=== PATIENT | female | born 1970 | race Caucasian/White ===

== ENCOUNTER 2017-11-06 12:33 | Emergency (ER) | payer OTHER ==
[2017-11-06 14:02] LABS: Basophils % (Auto) 0.3 % (0.0-1.8); Eosinophils # (Auto) 0.2 K/mm3 (0.0-0.4); Eosinophils % (Auto) 1.4 % (0.0-4.3); Hematocrit 41.5 % (30.3-42.9); Hemoglobin 14.1 gm/dl (10.1-14.3); Lymphocytes # (Auto) 3.2 K/mm3 (1.2-5.4); Lymphocytes % (Auto) 20.3 % (13.4-35.0); Mean Corpuscular HGB Conc 34 % (30-34); Mean Corpuscular Hemoglobin 32 pg (28-32); Mean Corpuscular Volume 93 fl (79-97); Monocytes # (Auto) 0.7 K/mm3 (0.0-0.8); Monocytes % (Auto) 4.5 % (0.0-7.3); Platelet Count 271 K/mm3 (140-440); Red Blood Count 4.47 M/mm3 (3.65-5.03); Red Cell Distribution Width 13.9 % (13.2-15.2)
[2017-11-06 14:19] LABS: BUN/Creatinine Ratio 16; Blood Urea Nitrogen 8 mg/dL (7-17); Calcium 8.6 mg/dL (8.4-10.2); Hemolysis Index 16
[2017-11-07] MEDS ORDERED: MOTRIN PO ONE (01:48)
[2017-11-07] MEDS ORDERED: CLEOCIN PO ONE (01:48)
[2017-11-07] MEDS ORDERED: TYLENOL PO ONE (01:48)
--- NOTE | 2017-11-07 01:49 | Emergency Department Report ---
ED General Adult HPI - General Chief complaint: Skin/Abscess/Foreign Body Stated complaint: ABSCESS Time Seen by Provider: 11/07/17 01:39 Source: patient Mode of arrival: Ambulatory Limitations: Language Barrier (this provider is conversational in montenegrin) - History of Present Illness Initial comments: This is a 47-year-old female who is not known to this provider previously. She reports that she is not . Patient presents to the ER with a complaint of left anterior mental pain, redness, swelling, tenderness. The pain does not radiate anywhere. It increases with palpation. It decreases with rest. Patient denies severe headache, neck pain, chest pain, abdominal pain, shortness of breath, fevers, chills, lethargy, stridor, inability to swallow. Patient is quite certain that she is not -: Gradual Location: face Radiation: non-radiation Severity scale (0 -10): 7 Quality: aching Consistency: intermittent Improves with: rest Worsens with: movement Associated Symptoms: rash. denies: confusion, chest pain, cough, diaphoresis, fever/chills, headaches, loss of appetite, malaise, nausea/vomiting, shortness of breath, syncope, weakness - Related Data Previous Rx's Medication Instructions Recorded Last Taken Type Albuterol Sulfate [Ventolin HFA] 2 puff IH Q4H PRN #1 hfa.aer.ad 06/30/15 Unknown Rx Amoxicillin [Trimox CAP] 500 mg PO Q8H #40 capsule 06/30/15 Unknown Rx Fluticasone [Flonase] 2 spray NS QDAY #1 bottle 06/30/15 Unknown Rx Loratadine [Claritin] 10 mg PO DAILY #30 tablet 06/30/15 Unknown Rx Promethazine /Codeine 5 ml PO Q6H PRN #150 ml 06/30/15 Unknown Rx [Phenergan/Codeine 6.25-10 mg/5 ml] predniSONE [Deltasone] 40 mg PO QDAY #10 tab 06/30/15 Unknown Rx Diazepam Tab [Valium] 2 mg PO Q8HR PRN #10 tablet 06/28/16 Unknown Rx Acetaminophen [Tylenol Arthritis] 650 mg PO Q6HR PRN #30 tablet.er 11/07/17 Unknown Rx Clindamycin HCl 300 mg PO Q6HR #20 capsule 12/28/17 Unknown Rx Ibuprofen [Motrin] 600 mg PO Q8H PRN #30 tablet 11/07/17 Unknown Rx Allergies Allergy/AdvReac Type Severity Reaction Status Date / Time No Known Allergies Allergy Verified 06/28/16 15:29 ED Review of Systems ROS: Stated complaint: ABSCESS Other details as noted in HPI ED Past Medical Hx - Past Medical History Previous Medical History?: No - Surgical History Past Surgical History?: No - Social History Smoking Status: Never Smoker Substance Use Type: None - Medications Home Medications: Home Medications Medication Instructions Recorded Confirmed Last Taken Type Albuterol Sulfate [Ventolin HFA] 2 puff IH Q4H PRN #1 hfa.aer.ad 06/30/15 Unknown Rx Amoxicillin [Trimox CAP] 500 mg PO Q8H #40 capsule 06/30/15 Unknown Rx Fluticasone [Flonase] 2 spray NS QDAY #1 bottle 06/30/15 Unknown Rx Loratadine [Claritin] 10 mg PO DAILY #30 tablet 06/30/15 Unknown Rx Promethazine /Codeine 5 ml PO Q6H PRN #150 ml 06/30/15 Unknown Rx [Phenergan/Codeine 6.25-10 mg/5 ml] predniSONE [Deltasone] 40 mg PO QDAY #10 tab 06/30/15 Unknown Rx Diazepam Tab [Valium] 2 mg PO Q8HR PRN #10 tablet 06/28/16 Unknown Rx Acetaminophen [Tylenol Arthritis] 650 mg PO Q6HR PRN #30 tablet.er 11/07/17 Unknown Rx Clindamycin HCl 300 mg PO Q6HR #20 capsule 11/07/17 Unknown Rx Ibuprofen [Motrin] 600 mg PO Q8H PRN #30 tablet 11/07/17 Unknown Rx ED Physical Exam - General Limitations: Language Barrier General appearance: alert, in no apparent distress - Head Head exam: Present: atraumatic, normocephalic - Eye Eye exam: Present: normal appearance, PERRL, EOMI. Absent: nystagmus - ENT ENT exam: Present: normal exam, normal orophraynx, mucous membranes moist, TM's normal bilaterally, normal external ear exam, other (patient is speaking in full sentences. There is no stridor or dysphonia or trismus. On the left anterior aspect of the mentum, there is a well-circumscribed area of induration , approximately 1.5 cm, with an indurated cystlike structure. It does not appear to extend inside the buccal cavity. There is some induration, however there is no fluctuance, and there is no streaking.) - Neck Neck exam: Present: normal inspection, full ROM - Respiratory Respiratory exam: Present: normal lung sounds bilaterally. Absent: respiratory distress, chest wall tenderness - Cardiovascular Cardiovascular Exam: Present: normal rhythm, tachycardia, normal heart sounds. Absent: systolic murmur, diastolic murmur, rubs, gallop - GI/Abdominal GI/Abdominal exam: Present: soft, normal bowel sounds. Absent: distended, tenderness, guarding, rebound, rigid, pulsatile mass - Extremities Exam Extremities exam: Present: normal inspection, full ROM. Absent: calf tenderness - Back Exam Back exam: Present: normal inspection, full ROM. Absent: tenderness, CVA tenderness (R), paraspinal tenderness, vertebral tenderness - Neurological Exam Neurological exam: Present: alert, CN II-XII intact, normal gait, other ( Extraocular movements intact. Tongue midline. No facial droop. Facial sensation intact to light touch in the V1, V2, V3 distribution bilaterally. 5 and 5 strength in 4 extremities.. Sensation is intact to light touch in 4 extremities.). Absent: motor sensory deficit - Psychiatric Psychiatric exam: Present: anxious - Skin Skin exam: Present: warm, rash, erythema ED Course Vital Signs 11/06/17 11/06/17 11/07/17 13:06 22:51 02:01 Temperature 98.4 F 98.2 F 98.7 F Pulse Rate 101 H 109 H 105 H Respiratory 16 18 20 Rate Blood Pressure 132/86 124/95 Blood Pressure 135/76 [Left] O2 Sat by Pulse 98 99 98 Oximetry 11/07/17 02:02 Temperature Pulse Rate Respiratory 18 Rate Blood Pressure Blood Pressure [Left] O2 Sat by Pulse 98 Oximetry ED Medical Decision Making - Lab Data Result diagrams: 11/06/17 13:28 11/06/17 13:28 Vital Signs 11/06/17 11/06/17 11/07/17 13:06 22:51 02:01 Temperature 98.4 F 98.2 F 98.7 F Pulse Rate 101 H 109 H 105 H Respiratory 16 18 20 Rate Blood Pressure 132/86 124/95 Blood Pressure 135/76 [Left] O2 Sat by Pulse 98 99 98 Oximetry 11/07/17 02:02 Temperature Pulse Rate Respiratory 18 Rate Blood Pressure Blood Pressure [Left] O2 Sat by Pulse 98 Oximetry Lab Results 11/06/17 11/06/17 Range/Units 13:28 13:28 WBC 15.7 H (4.5-11.0) K/mm3 RBC 4.47 (3.65-5.03) M/mm3 Hgb 14.1 (10.1-14.3) gm/dl Hct 41.5 (30.3-42.9) % MCV 93 (79-97) fl MCH 32 (28-32) pg MCHC 34 (30-34) % RDW 13.9 (13.2-15.2) % Plt Count 271 (140-440) K/mm3 Lymph % (Auto) 20.3 (13.4-35.0) % [place] % (Auto) 4.5 (0.0-7.3) % Eos % (Auto) 1.4 (0.0-4.3) % Baso % (Auto) 0.3 (0.0-1.8) % Lymph # 3.2 (1.2-5.4) K/mm3 [place] # 0.7 (0.0-0.8) K/mm3 Eos # 0.2 (0.0-0.4) K/mm3 Baso # 0.0 (0.0-0.1) K/mm3 Seg Neutrophils % 73.5 H (40.0-70.0) % Seg Neutrophils # 11.6 H (1.8-7.7) K/mm3 Sodium 134 L (137-145) mmol/L Potassium 4.0 (3.6-5.0) mmol/L Chloride 96.9 L (98-107) mmol/L Carbon Dioxide 21 L (22-30) mmol/L Anion Gap 20 mmol/L BUN 8 (7-17) mg/dL Creatinine 0.5 L (0.7-1.2) mg/dL Estimated GFR > 60 ml/min BUN/Creatinine Ratio 16 % Glucose 252 H (65-100) mg/dL Calcium 8.6 (8.4-10.2) mg/dL - Medical Decision Making Differential diagnosis, including but not limited to: Cellulitis, abscess Assessment and plan: 47-year-old female with what appears to be simple facial cellulitis. On my physical exam there is induration but no fluctuance. A bedside ultrasound demonstrates no discrete fluid collection. Tachycardia is appreciated there appears to be an anxiety component. Patient has been observed in the ER for over 12 hours without clinical decompensation. She is speaking in full sentences with no stridor, dysphonia, no airway compromise. Patient will be started on pain medication, clindamycin, she is instructed to follow-up in 48 hours for a recheck. At this point time, patient does not require incision and drainage. Critical care attestation.: If time is entered above; I have spent that time in minutes in the direct care of this critically ill patient, excluding procedure time. ED Disposition Clinical Impression: Cellulitis Disposition: DC-01 TO HOME OR SELFCARE Is pt being admited?: No Does the pt Need Aspirin: No Condition: Stable Instructions: Cellulitis (ED) Additional Instructions: Apply warm compresses to the affected area as often as he like, and as as needed. Take the pain medication, antibiotic medication as directed. Return in 2 days, 48 hours for a repeat wound check/evaluation. At this point in time, patient does not require incision and drainage, however it is possible that in the future, patient will require incision and drainage of the affected site. Return to the ER right away with new pain, worsened pain, migration of pain, fevers, chills, lethargy, irritability, projectile vomiting, change in mental status, confusion, inability to tolerate liquid feeds. They should may follow- up in this emergency Department for a wound check, or she can follow up with any of the listed primary care doctor's for a wound evaluation. Either way, the patient to return in 2 days for repeat wound check. Aplique compresas tibias en el larissa afectada cuantas veces lo desee y segn sea necesario. [place] el analgsico, los antibiticos segn las indicaciones. Regrese en 2 paredes, 48 horas para zen revisin / evaluacin de la herida repetida. En abisai momento, el paciente no requiere incisin y drenaje, sin embargo, es posible que en el futuro, el paciente requiera incisin y drenaje del sitio afectado. Regrese a la joanie de urgencias inmediatamente con dolor nuevo, dolor empeorado, migracin de dolor, fiebre, escalofros, letargo, irritabilidad, vmitos de proyectil, cambio en el estado mental, confusin, incapacidad para tolerar alimentos lquidos. Deberan hacer un seguimiento en abisai departamento de emergencia para un control de heridas, o inderjit puede hacer un seguimiento con cualquiera de los mdicos de atencin primaria enumerados para zen evaluacin de la herida. De cualquier manera, el paciente regresar en 2 paredes para repetir el chequeo de la herida. Referrals: [facility] [Provider Group] - 3-5 Days PRIMARY CARE,MD [Primary Care Provider] - 3-5 Days KRISHNA GARRETT MD [Staff Physician] - 3-5 Days HUANG ROMAN MD [Staff Physician] - 3-5 Days
[2017-11-07 02:02] VITALS: BP 135/76
== END 2017-11-07 02:43 | disposition home or self-care (01) ==
LOC: ED 12:33
DX: L03.211 Cellulitis of face (principal)
CPT/HCPCS: 36415; 80048; 85025; 99283

== ENCOUNTER 2017-11-09 13:29 | Emergency (ER) | payer OTHER ==
[2017-11-09 13:36] VITALS: BP 134/85
--- NOTE | 2017-11-09 16:55 | Emergency Department Report ---
Abscess Boil HPI - HPI Chief Complaint: Laceration/Recheck/Suture Stated Complaint: RE CHECK WOUND Time Seen by Provider: 11/09/17 16:52 Duration: 3 Days Location: Other ([facility]) Severity: Mild History: Yes Previous History, No Fever, No Pain, No Purulent Drainage, No Numbness, No Foreign Body, No Insect Bite Home Medications: Previous Rx's Medication Instructions Recorded Last Taken Type Acetaminophen [Tylenol Arthritis] 650 mg PO Q6HR PRN #30 tablet.er 11/07/17 Unknown Rx Clindamycin HCl 300 mg PO Q6HR #20 capsule 11/07/17 Unknown Rx Ibuprofen [Motrin] 600 mg PO Q8H PRN #30 tablet 11/07/17 Unknown Rx Fluconazole [Diflucan] 150 mg PO ONCE #1 tablet 11/09/17 Unknown Rx Neomycin/Bacitracin/Polymyxinb 70.8 gm TP BID #1 oint...g. 11/09/17 Unknown Rx [Neosporin Antibiotic Ointment] Allergies/Adverse Reactions: Allergies Allergy/AdvReac Type Severity Reaction Status Date / Time No Known Allergies Allergy Verified 11/09/17 13:33 ED Review of Systems ROS: Stated complaint: RE CHECK WOUND Other details as noted in HPI Comment: All other systems reviewed and negative Skin: other (LESION ON CHIN SP TX FOR ABSCESS ON ANBX HERE IN ER. TOLD TO RETURN FOR RECHECK ) ED Past Medical Hx - Past Medical History Previous Medical History?: No Hx Diabetes: Yes - Surgical History Past Surgical History?: No - Social History Smoking Status: Current Every Day Smoker Substance Use Type: Alcohol - Medications Home Medications: Home Medications Medication Instructions Recorded Confirmed Last Taken Type Acetaminophen [Tylenol Arthritis] 650 mg PO Q6HR PRN #30 tablet.er 11/07/17 Unknown Rx Clindamycin HCl 300 mg PO Q6HR #20 capsule 11/07/17 Unknown Rx Ibuprofen [Motrin] 600 mg PO Q8H PRN #30 tablet 11/07/17 Unknown Rx Fluconazole [Diflucan] 150 mg PO ONCE #1 tablet 11/09/17 Unknown Rx Neomycin/Bacitracin/Polymyxinb 70.8 gm TP BID #1 oint...g. 11/09/17 Unknown Rx [Neosporin Antibiotic Ointment] ED Abscess Boil Physical Exam - Exam General: Vital signs noted. No distress. Alert and acting appropriately. Size: 1 cm Exam: Yes Normal Neurologic Exam, Yes Normal Circulation, No Tenderness, No Fluctuance, No Surrounding Cellulites/Erythema (MILD REDNESS AND SCAB. NO ABSCESS), No Lymphangitis, No Crepitation, No Heart Murmur Exam: HER 89 ON EXAM. REPORTS VAG DC SINCE ON ANTIBIOTICS. SHE STATES GETS THIS WHEN ON THESE KIND OF MEDICATIONS BECAUSE OF HER DM ED Course Vital Signs 11/09/17 13:34 Temperature 98.2 F Pulse Rate 107 H Respiratory 20 Rate Blood Pressure 134/85 O2 Sat by Pulse 98 Oximetry - Reevaluation(s) Reevaluation #1: 11/09/17 17:14 NO I/D 11/09/17 17:18 NON ILL NON TOXIC NO FEVER SCAB OVER WOUND NO ABSCESS MILD REDNESS HEALING WELL ON MEDS DC HOME W DERM FOLLOW UP Critical care attestation.: If time is entered above; I have spent that time in minutes in the direct care of this critically ill patient, excluding procedure time. ED Medical Decision Making - Medical Decision Making SEE NOTE - Differential Diagnosis WOUND CHECK ED Disposition Clinical Impression: Cellulitis, Vaginitis Disposition: DC-01 TO HOME OR SELFCARE Is pt being admited?: No Does the pt Need Aspirin: No Condition: Stable Instructions: Cellulitis (ED) Additional Instructions: CONTINUE WARM COMPRESSES TO FACE TWICE PER DAY APPLY NEOSPORIN TWICE PER DAY TO SOFTEN THE SCAB SO IT FALLS OFF WITHOUT SCARING OR BLEEDING CONTINUE YOUR ANTIBIOTICS UNTIL GONE TAKE DIFLUCAN ONE TIME TODAY EAT YOGURT WITH ACTIVE CULTURES HYDRATE WELL FOLLOW UP THIS WEEK WITH A ORAL SURGERY PHYSICIAN- SEE BELOW THIS IS A SKIN DOCTOR WHO WILL FURTHER EVALUATE HEALING OF YOUR WOUND MOTRIN OR TYLENOL FOR PAIN RETURN IF YOU GET A FEVER OVER 101 THAT WILL NOT COME DOWN WITH MOTRIN OR TYLENOL; OR IF THE WOUND FILLS UP WITH DRAINAGE Referrals: PRIMARY CARE, [Primary Care Provider] - 3-5 Days MOIZ MOYA MD [Referring] - 3-5 Days Time of Disposition: 17:14
[2017-11-09] MEDS ORDERED: TRIPLE ANTIBIOTIC TP ONE (17:04)
== END 2017-11-09 17:54 | disposition home or self-care (01) ==
LOC: ED 13:29
DX: L03.211 Cellulitis of face (principal); N76.0 Acute vaginitis; E11.9 Type 2 diabetes mellitus without complications; F17.200 Nicotine dependence, unspecified, uncomplicated
CPT/HCPCS: 99282; A6250

== ENCOUNTER 2019-04-13 01:35 | Emergency (ER) | payer SELFPAY ==
[2019-04-13 01:55] VITALS: BP 131/87
--- NOTE | 2019-04-13 02:24 | Emergency Department Report ---
HPI - General Chief Complaint: Allergic Reaction Time Seen by Provider: 04/13/19 01:53 ED Past Medical Hx - Past Medical History Previous Medical History?: Yes Hx Diabetes: Yes - Social History Smoking Status: Never Smoker - Medications Home Medications: Home Medications Medication Instructions Recorded Confirmed Last Taken Type Acetaminophen [Tylenol Arthritis] 650 mg PO Q6HR PRN #30 tablet.er 11/07/17 Unknown Rx Clindamycin HCl 300 mg PO Q6HR #20 capsule 11/07/17 Unknown Rx Ibuprofen [Motrin] 600 mg PO Q8H PRN #30 tablet 11/07/17 Unknown Rx Fluconazole [Diflucan] 150 mg PO ONCE #1 tablet 11/09/17 Unknown Rx Neomycin/Bacitracin/Polymyxinb 70.8 gm TP BID #1 oint...g. 11/09/17 Unknown Rx [Neosporin Antibiotic Ointment] ED Review of Systems ROS: Stated complaint: ALLERGIC REACTION Other details as noted in HPI Physical Exam - Physical Exam Vital Signs: Vital Signs 04/13/19 04/13/19 01:50 01:51 Temperature 98.0 F Pulse Rate 92 H Respiratory 20 Rate Blood Pressure 131/87 O2 Sat by Pulse 96 98 Oximetry ED Course Vital Signs 04/13/19 04/13/19 01:50 01:51 Temperature 98.0 F Pulse Rate 92 H Respiratory 20 Rate Blood Pressure 131/87 O2 Sat by Pulse 96 98 Oximetry Critical care attestation.: If time is entered above; I have spent that time in minutes in the direct care of this critically ill patient, excluding procedure time. ED Disposition Condition: Stable
[2019-04-13] MEDS ORDERED: BENADRYL IV ONE (02:34)
[2019-04-13] MEDS ORDERED: PEPCID IV ONE (02:34)
[2019-04-13] MEDS ORDERED: DECADRON IV ONE (02:34)
--- NOTE | 2019-04-13 02:38 | Emergency Department Report ---
HPI - General Chief Complaint: Allergic Reaction Time Seen by Provider: 04/13/19 01:53 - HPI HPI: 48-year-old female with a history of diabetes presents to the hospital complaining of symptoms of an allergic reaction. The past 3 days patient has been drinking beer throughout the day. She states that when she drinks occult his upper abdomen to hurt. She has been having diarrhea the last several days without nausea or vomiting. When she woke up today she was thirsty and drank a [id number] strawberry glucerna. Shortly after drinking the medication she began to have throat tightness, throat itching, itching and hives to her extremities. Patient received Benadryl 25 mg IV in route. Pruritus has improved the patient has some residual throat discomfort. Patient has taken this protein drink in the past without any issues she denies any new food or substance exposure. ED Past Medical Hx - Past Medical History Previous Medical History?: Yes Hx Diabetes: Yes - Social History Smoking Status: Never Smoker - Medications Home Medications: Home Medications Medication Instructions Recorded Confirmed Last Taken Type Acetaminophen [Tylenol Arthritis] 650 mg PO Q6HR PRN #30 tablet.er 11/07/17 Unknown Rx Clindamycin HCl 300 mg PO Q6HR #20 capsule 11/07/17 Unknown Rx Ibuprofen [Motrin] 600 mg PO Q8H PRN #30 tablet 11/07/17 Unknown Rx Fluconazole [Diflucan] 150 mg PO ONCE #1 tablet 11/09/17 Unknown Rx Neomycin/Bacitracin/Polymyxinb 70.8 gm TP BID #1 oint...g. 11/09/17 Unknown Rx [Neosporin Antibiotic Ointment] Famotidine [Pepcid] 20 mg PO BID #60 tablet 04/13/19 Unknown Rx diphenhydrAMINE [Benadryl CAP] 25 mg PO Q8HR PRN #30 capsule 04/13/19 Unknown Rx predniSONE [Deltasone] 40 mg PO QDAY 5 Days tablet 04/13/19 Unknown Rx ED Review of Systems ROS: Stated complaint: ALLERGIC REACTION Other details as noted in HPI Comment: All other systems reviewed and negative Physical Exam - Physical Exam Vital Signs: Vital Signs 04/13/19 04/13/19 01:50 01:51 Temperature 98.0 F Pulse Rate 92 H Respiratory 20 Rate Blood Pressure 131/87 O2 Sat by Pulse 96 98 Oximetry Physical Exam: General: No limitations, patient is alert in no acute distress Head exam: Atraumatic, normocephalic Eyes exam: Normal appearance ENT: Moist mucous membrane, no exudates, no edema, no erythema, no stridor Neck exam: Normal inspection, full range of motion, no meningismus nontender Respiratory exam: Clear to auscultation bilateral, no wheezes, rales, crackles Cardiovascular: Normal rate and rhythm, normal heart sounds Abdomen: Soft, nondistended, upper quadrant and epigastric tenderness, with normal bowel sounds, no rebound, or guarding Extremity: Full range of motion normal inspection no deformity Back: Normal Inspection, full range of motion, no tenderness Neurologic: Alert, oriented x3, cranial nerves intact, no motor or sensory deficit Psychiatric: normal affect, normal mood Skin: mild Residual hives ED Course Vital Signs 04/13/19 04/13/19 01:50 01:51 Temperature 98.0 F Pulse Rate 92 H Respiratory 20 Rate Blood Pressure 131/87 O2 Sat by Pulse 96 98 Oximetry ED Medical Decision Making - Lab Data Result diagrams: 04/13/19 02:45 04/13/19 02:45 Lab Results 04/13/19 04/13/19 Range/Units 02:45 02:45 WBC 11.3 H (4.5-11.0) K/mm3 RBC 4.52 (3.65-5.03) M/mm3 Hgb 13.6 (10.1-14.3) gm/dl Hct 40.1 (30.3-42.9) % MCV 89 (79-97) fl MCH 30 (28-32) pg MCHC 34 (30-34) % RDW 14.6 (13.2-15.2) % Plt Count 306 (140-440) K/mm3 Lymph % (Auto) 27.2 (13.4-35.0) % [place] % (Auto) 3.8 (0.0-7.3) % Eos % (Auto) 1.7 (0.0-4.3) % Baso % (Auto) 0.4 (0.0-1.8) % Lymph # 3.1 (1.2-5.4) K/mm3 [place] # 0.4 (0.0-0.8) K/mm3 Eos # 0.2 (0.0-0.4) K/mm3 Baso # 0.1 (0.0-0.1) K/mm3 Seg Neutrophils % 66.9 (40.0-70.0) % Seg Neutrophils # 7.5 (1.8-7.7) K/mm3 Sodium 137 (137-145) mmol/L Potassium 3.5 L (3.6-5.0) mmol/L Chloride 101.3 (98-107) mmol/L Carbon Dioxide 23 (22-30) mmol/L Anion Gap 16 mmol/L BUN 7 (7-17) mg/dL Creatinine 0.4 L (0.7-1.2) mg/dL Estimated GFR > 60 ml/min BUN/Creatinine Ratio 18 % Glucose 200 H (65-100) mg/dL Calcium 8.3 L (8.4-10.2) mg/dL Total Bilirubin 0.30 (0.1-1.2) mg/dL AST 19 (5-40) units/L ALT 24 (7-56) units/L Alkaline Phosphatase 97 (35-129) units/L Total Protein 6.2 L (6.3-8.2) g/dL Albumin 3.5 L (3.9-5) g/dL Albumin/Globulin Ratio 1.3 % Lipase 14 (13-60) units/L - Medical Decision Making pt feeling better after ED treatment at included Decadron, Pepcid, and Benadryl She is tolerating drinking fluids without difficulty Patient also complained of epigastric pain with beer intake. That findings are unremarkable for pancreatitis or elevated LFTs. Patient encouraged to not drink alcohol since her stomach hurts after alcohol intake. Treated with Pepcid for her stomach. And additional medications for allergic reaction. She was on the steroids may cause a temporary increase in her glucose and she may need to adjust her insulin. Pt told to not drink the glucerna. - Differential Diagnosis gastritis, pancreatitis, beta colic, reactive Critical Care Time: No Critical care attestation.: If time is entered above; I have spent that time in minutes in the direct care of this critically ill patient, excluding procedure time. ED Disposition Clinical Impression: Alcoholic gastritis, Allergic reaction Disposition: DC- TO HOME OR SELFCARE Is pt being admited?: No Does the pt Need Aspirin: No Condition: Stable Instructions: Gastritis (ED), Allergies (ED) Additional Instructions: Take the medication as prescribed. Follow up with your doctor or the clinic/doctor provided. Return if symptoms worsen as indicated by your discharg e instructions. Continue to monitor your glucose closely while taking the prescribed prednisone which is a steroid. Steroids may cause a temporary increase in your blood glucose. This should correct once the medication is discontinued. However, if your glucose remains significantly elevated you may need a temporary Increase in your insulin doses. Stop drinking Glucerna since your allergy symptoms started after drinking it. Also stop drinking alcohol since it causes you to have upper stomach pain. [place] la medicacin segn lo prescrito. Miki un seguimiento con bragg mdico o la clnica / mdico proporcionado. Regrese si los sntomas empeoran jan lo indican katie instrucciones de elias. Contine controlando bragg glucosa de cerca mientras lona la prednisona prescrita, que es un esteroide. Los esteroides pueden causar un aumento temporal de la glucosa en la pedro. [place] debera corregirse zen vez que se suspenda la medicacin. Sin embargo, si bragg glucosa permanece significativamente elevada, es posible que necesite un aumento temporal de katie dosis de insulina. Deje de beber Glucerna ya que katie sntomas de alergia comenzaron despus de tomarla. [place] deje de beber alcohol ya que le causa dolor en la parte superior del estmago. Prescriptions: diphenhydrAMINE [Benadryl CAP] 25 mg PO Q8HR PRN #30 capsule PRN Reason: Allergic Reaction predniSONE [Deltasone] 40 mg PO QDAY 5 Days tablet Famotidine [Pepcid] 20 mg PO BID #60 tablet Referrals: BEATRIS LOPEZ MD [Primary Care Provider] - 3-5 Days your, doctor [Other] - 3-5 Days Time of Disposition: 05:16
[2019-04-13 02:58] LABS: Basophils # (Auto) 0.1 K/mm3 (0.0-0.1); Basophils % (Auto) 0.4 % (0.0-1.8); Eosinophils # (Auto) 0.2 K/mm3 (0.0-0.4); Eosinophils % (Auto) 1.7 % (0.0-4.3); Hematocrit 40.1 % (30.3-42.9); Hemoglobin 13.6 gm/dl (10.1-14.3); Lymphocytes # (Auto) 3.1 K/mm3 (1.2-5.4); Lymphocytes % (Auto) 27.2 % (13.4-35.0); Mean Corpuscular HGB Conc 34 % (30-34); Mean Corpuscular Volume 89 fl (79-97); Monocytes # (Auto) 0.4 K/mm3 (0.0-0.8); Monocytes % (Auto) 3.8 % (0.0-7.3); Platelet Count 306 K/mm3 (140-440); Red Blood Count 4.52 M/mm3 (3.65-5.03); Red Cell Distribution Width 14.6 % (13.2-15.2)
[2019-04-13 03:13] LABS: Alanine Aminotransferase 24 units/L (7-56); Albumin 3.5 g/dL (3.9-5); BUN/Creatinine Ratio 18; Blood Urea Nitrogen 7 mg/dL (7-17); Calcium 8.3 mg/dL (8.4-10.2); Hemolysis Index 10
== END 2019-04-13 06:00 | disposition home or self-care (01) ==
LOC: ED 01:35
DX: T78.40XA Allergy, unspecified, initial encounter (principal); K29.20 Alcoholic gastritis without bleeding; E11.9 Type 2 diabetes mellitus without complications; X58.XXXA Exposure to other specified factors, initial encounter
CPT/HCPCS: 36415; 80053; 83690; 85025; 96374; 96375; 99283; J1100; J1200

== ENCOUNTER 2019-09-03 15:46 | Outpatient (CLI) | payer OTHER ==
--- NOTE | 2019-09-07 11:52 | Mammography Report ---
DIGITAL SCREENING MAMMOGRAM WITH CAD, 09/03/2019 INDICATION: Routine screening mammography. TECHNIQUE: Digital bilateral 2D mammography was obtained in the craniocaudal and mediolateral obliq ue projections. This examination was interpreted with the benefit of Computer-Aided Detection analysi s. COMPARISON: None available. However, she indicated that she had a previous mammogram at [facility]. FINDINGS: Breast Density: The breasts are heterogeneously dense, which may obscure small masses. Left asymmetries require comparison with a prior mammogram or additional imaging. No architectural di stortion or suspicious calcifications of the left breast. There is no evidence of dominant mass, susp icious calcifications or architectural distortion in the right breast. IMPRESSION: Comparison with the previous mammogram is recommended. We will attempt to obtain a prior mammogram for comparison. If we do not obtain a prior mammogram within 30 days, a revised report will be issued recommending a recall for additional imaging. Please be advised that the patient should no t schedule an appointment for return until adequate time (at least 2 weeks) has passed for us to obta in the prior mammogram. Follow up recommendation: Obtain prior study for comparison Category 0: Incomplete. Needs additional imaging evaluation and/or prior mammograms for comparison. A "normal" or negative report should not discourage follow up or biopsy of a clinically significant f inding. A written summary of these findings will be mailed to the patient. The patient will be entered into a mammography reporting system which will generate a reminder letter for the patient's next appointmen t at the appropriate interval. The [employer] recommends yearly mammograms starting at age 40 and continuing as l sunita as a woman is in good health. Breast MRI is recommended for women with an approximate 20-25% or greater lifetime risk of breast cancer, including women with a strong family history of breast or ova sharlene cancer or who have been treated for Hodgkin's disease. Signer Name: Neo Rodriguez MD Signed: 09/07/2019 11:48 AM Workstation Name: [id number]
== END 2019-09-03 15:47 | disposition home or self-care (01) ==
LOC: SPVWC 15:46
PROVIDERS: ATTEND Student in an Organized Health Care Education/Training Program
DX: Z12.31 Encounter for screening mammogram for malignant neoplasm of breast (principal)
CPT/HCPCS: 77067

== ENCOUNTER 2021-10-11 12:47 | Outpatient (CLI) | payer OTHER ==
--- NOTE | 2021-10-12 10:25 | Mammography Report ---
DIGITAL SCREENING MAMMOGRAM WITH CAD, 10/11/2021 CLINICAL INFORMATION / INDICATION: Routine screening mammography. TECHNIQUE: Digital bilateral 2D mammography was obtained in the craniocaudal and mediolateral obliqu e projections. This examination was interpreted with the benefit of Computer-Aided Detection analysis . COMPARISON: 09/03/2019 FINDINGS: Breast Density: There are scattered areas of fibroglandular density. No dominant mass, suspicious calcifications, or architectural distortion in either breast. IMPRESSION: No mammographic evidence of malignancy. Follow up recommendation: Routine yearly BI-RADS Category 1: Negative. A "normal" or negative report should not discourage follow up or biopsy of a clinically significant f inding. A written summary of these findings will be mailed to the patient. The patient will be entered into a mammography reporting system which will generate a reminder letter for the patient's next appointmen t at the appropriate interval. The [employer] recommends yearly mammograms starting at age 40 and continuing as l sunita as a woman is in good health. Breast MRI is recommended for women with an approximate 20-25% or greater lifetime risk of breast cancer, including women with a strong family history of breast or ova sharlene cancer or who have been treated for Hodgkin's disease. Signer Name: Aaron Valadez MD Signed: 10/12/2021 10:20 AM Workstation Name: [id number]
== END 2021-10-11 12:48 | disposition home or self-care (01) ==
LOC: MAMMO 12:47
PROVIDERS: ATTEND Internal Medicine
DX: Z12.31 Encounter for screening mammogram for malignant neoplasm of breast (principal)
CPT/HCPCS: 77067

== ENCOUNTER 2021-11-06 10:27 | Outpatient (CLI) | payer OTHER ==
--- NOTE | 2021-11-06 12:05 | Cat Scan Report ---
CT CHEST WITHOUT CONTRAST INDICATION / CLINICAL INFORMATION: ENCOUNTER FOR SCREENING FOR MALIGNANT NEOPLASM. No other pertinent history provided. TECHNIQUE: Axial CT images were obtained through the chest without contrast. All CT scans at this location are p erformed using CT dose reduction for ALARA by means of automated exposure control. COMPARISON: One view of the chest from 06/28/2016. FINDINGS: HEART: No significant abnormality. VASCULATURE: No significant abnormality. LYMPH NODES: No significant adenopathy. TRACHEA AND BRONCHI:No significant abnormality. LUNGS: Mild dependent atelectasis is noted bilaterally with questionable bibasilar air-trapping. A 5 mm calcified granuloma is seen anteriorly along the right upper lobe. The lungs are otherwise clear. No significant pleural effusion. No pneumothorax. UPPER ABDOMEN: No significant abnormality. BONES: No significant abnormality. ADDITIONAL FINDINGS: None. IMPRESSION: 1. No CT evidence of neoplastic disease in the chest by noncontrast imaging. 2. Additional findings as above. Signer Name: Aaron Valadez MD Signed: 11/06/2021 12:00 PM Workstation Name: [id number]
== END 2021-11-06 10:28 | disposition home or self-care (01) ==
LOC: CT 10:27
PROVIDERS: ATTEND Internal Medicine
DX: Z12.2 Encounter for screening for malignant neoplasm of respiratory organs (principal); J98.11 Atelectasis; F17.200 Nicotine dependence, unspecified, uncomplicated
CPT/HCPCS: 71250